=== PATIENT | male | born 1980 | race Caucasian/White ===

== ENCOUNTER 2017-02-22 15:31 | Emergency (ER) | payer OTHER ==
[~2017-02-22] VITALS: Ht 188 cm; Wt 133.8 kg
[~2017-02-22 15:31] MED LIST: DULO30CA2 PO; LEVO750T31 PO; LISI1TAB7 PO; RITU10VI IV
[2017-02-22] MEDS ORDERED: NAPROXEN 500 MG TABLET PO STA (15:46)
[2017-02-22 15:55] VITALS: BP 167/98
[2017-02-22] MEDS ORDERED: CYCL10TA2 PO (15:56)
[2017-02-22] MEDS ORDERED: METH4TAB2 PO (15:56)
[2017-02-22] MEDS ORDERED: NAPR500T4 PO (15:56)
--- NOTE | 2017-02-22 15:57 | PHYS DOC ---
Past Medical History Past Medical History: No Pertinent History Past Surgical History: No Surgical History Alcohol Use: Heavy Drug Use: Marijuana Adult General Chief Complaint Chief Complaint: LOWER BACK PAIN OR INJURY HPI HPI Patient is a 37 year old male who presents today complaining over 10 out of 10 left low back pain right in to the left lower extremity that began today after he pulled a pallet at work. Patient denies any loss of bowel bladder function. Denies any numbness or tingling to bilateral lower extremities. He states his previous history of sciatic nerve pain issues as well as low back pain. Review of Systems Review of Systems Constitutional: Denies fever or chills [] GI: Denies abdominal pain, nausea, vomiting, bloody stools or diarrhea [] : Denies dysuria or hematuria [] Musculoskeletal: Left low back pain radiating into the left lower extremity Integument: Denies rash or skin lesions [] Neurologic: Denies headache, focal weakness or sensory changes [] All other systems were reviewed and found to be within normal limits, except as documented in this note. Allergies Allergies Allergies Coded Allergies Type Severity Reaction Last Updated Verified No Known Drug Allergies 05/25/13 No Physical Exam Physical Exam Constitutional: Well developed, well nourished, no acute distress, non-toxic appearance. [] Abdomen: Bowel sounds normal, soft, no tenderness, no masses, no pulsatile masses. [] Skin: Warm, dry, no erythema, no rash. [] Back: Diffuse paraspinal muscle tenderness to the left lumbar spine was on the left SI joint, no midline lumbar spine tenderness, no CVA tenderness. Positive left leg straight raises. Extremities: No tenderness, no cyanosis, no clubbing, ROM intact, no edema. [] Neurologic: Alert and oriented X 3, normal motor function, normal sensory function, no focal deficits noted. [] Psychologic: Affect normal, judgement normal, mood normal. [] EKG EKG [] Radiology/Procedures Radiology/Procedures [] Course & Med Decision Making Course & Med Decision Making Pertinent Labs and Imaging studies reviewed. (See chart for details) Patient is in the ED with pain consistent of sciatic nerve pain, from lifting/ pulling a pallet at work. There is no cauda equina syndrome symptoms. He was asking for strong pain medicine, informed we do not give any narcotics our ED for back pain or sciatica or lumbar strain because this conditions can be managed with other non narcotics medicines. He'll be discharged with naproxen, Flexeril and Medrol Dosepak. He states he has a PCP Dr. Pruitt. Instructed to follow-up in the next 1 week. Dragon Disclaimer Dragon Disclaimer This electronic medical record was generated, in whole or in part, using a voice recognition dictation system. Departure Departure Impression: Primary Impression: Lumbosacral strain Additional Impressions: Low back pain Left sciatic nerve pain Disposition: HOME, SELF-CARE Condition: STABLE Referrals: NO PCP (PCP) TREE LAIRD MD follow up in one week MICH PRUITT MD follow up in one week Patient Instructions: Back Pain, Adult, Lumbosacral Strain, Sciatica with Rehab -SportsMed Additional Instructions: You were seen with lumbar strain, sciatic nerve pain. Follow-up with Dr. Pruitt in the next 1 week or the pain clinic doctor provided. Take the prescribed medicines as ordered. Scripts Cyclobenzaprine Hcl (CYCLOBENZAPRINE HCL) 10 Mg Tablet 1 TAB PO TID, #30 TAB Prov: CHAPARRO MAI APRN 02/22/17 Naproxen (NAPROXEN) 500 Mg Tablet 1 TAB PO BID, #30 TAB 0 Refills Prov: CHAPARRO MAI APRN 02/22/17 Methylprednisolone (MEDROL) 4 Mg Tab.ds.pk 1 PKG PO UD, #1 PKG Prov: CHAPARRO MAI APRN 02/22/17 Problem Qualifiers Primary Impression: Lumbosacral strain Encounter type: initial encounter Qualified Codes: S39.012A - Strain of muscle, fascia and tendon of lower back, initial encounter Additional Impressions: Low back pain Chronicity: acute Back pain laterality: left Sciatica presence: with sciatica Sciatica laterality: sciatica of left side Qualified Codes: M54.42 - Lumbago with sciatica, left side KYLEMARÍACHAPARRO Rene APRN Feb 22, 2017 15:57
[2017-02-22] MEDS ORDERED: CYCLOBENZAPRINE 10 MG TABLET. PO ONE (16:00)
[2017-02-22] MEDS ORDERED: predniSONE 10 MG TABLET PO ONE (16:00)
== END 2017-02-22 16:11 | disposition home or self-care (01) ==
LOC: ER 15:31
DX: S39.012A Strain of muscle, fascia and tendon of lower back, initial encounter (principal); M54.42 Lumbago with sciatica, left side; F12.10 Cannabis abuse, uncomplicated; F10.10 Alcohol abuse, uncomplicated; X50.9XXA Other and unspecified overexertion or strenuous movements or postures, initial encounter; Y93.89 Activity, other specified; Y99.0 Civilian activity done for income or pay; Y92.69 Other specified industrial and construction area as the place of occurrence of the external cause
CPT/HCPCS: 99284; J7512

== ENCOUNTER 2017-04-10 21:16 | Emergency (ER) | payer SELFPAY, OTHER ==
[2017-04-10 22:10] LABS: ADD MAN DIFF? NO
[2017-04-10 22:13] LABS: BASO # 0.1 x10^3/uL (0.0-0.2); BASO % 1 % (0-3); EOS # 0.5 x10^3/uL (0.0-0.7); EOS % 6 % (0-3); HEMATOCRIT 45.7 % (39.0-53.0); HEMOGLOBIN 15.4 g/dL (13.0-17.5); LYMPH # 1.2 x10^3/uL (1.0-4.8); LYMPH % 15 % (24-48); MEAN CORPUSCULAR HEMOGLOBIN 31 pg (25-35); MEAN CORPUSCULAR HGB CONC 34 g/dL (31-37); MEAN CORPUSCULAR VOLUME 92 fL (79-100); MONO # 0.8 x10^3/uL (0.0-1.1); MONO % 10 % (0-9); NEUT # 5.7 x10^3uL (1.8-7.7); NEUT % 69 % (31-73); PLATELET COUNT 146 x10^3/uL (140-400); RED BLOOD COUNT 4.95 x10^6/uL (4.30-5.70); RED CELL DISTRIBUTION WIDTH 15.2 % (11.5-14.5); WHITE BLOOD COUNT 8.2 x10^3/uL (4.0-11.0)
[2017-04-10] MEDS: IV NORMAL SALINE 500ML BAG 500 ML IV (22:22)
[2017-04-10 22:23] LABS: ANION GAP 12 (6-14); BLOOD UREA NITROGEN 15 mg/dL (8-26); CALCIUM 8.2 mg/dL (8.5-10.1); CARBON DIOXIDE 23 mmol/L (21-32); CHLORIDE 104 mmol/L (98-107); CREATININE 0.9 mg/dL (0.7-1.3); GFR 93.9; GLUCOSE 91 mg/dL (70-99); POTASSIUM 4.2 mmol/L (3.5-5.1); SODIUM 139 mmol/L (136-145)
[2017-04-10] MEDS: fentaNYL PF VIAL 100 MCG/2 ML VIAL IV (22:23)
[2017-04-10 22:57] LABS: BILIRUBIN,URINE NEGATIVE (NEG); CLARITY,URINE CLEAR; COLOR,URINE YELLOW; GLUCOSE,URINE NEGATIVE (NEG); NITRITE,URINE NEGATIVE (NEG); PROTEIN,URINE NEGATIVE (NEG-TRACE)
[2017-04-10 23:08] LABS: BACTERIA,URINE 0 /HPF (0-FEW); RBC,URINE 0 /HPF (0-2); SQUAMOUS EPITHELIAL CELL,UR FEW /LPF; WBC,URINE 0 /HPF (0-4)
== END 2017-04-11 01:28 | disposition home or self-care (01) ==
LOC: ER 04-11 01:28
DX: S02.2XXA Fracture of nasal bones, initial encounter for closed fracture (principal); S06.0X1A Concussion with loss of consciousness of 30 minutes or less, initial encounter; S00.12XA Contusion of left eyelid and periocular area, initial encounter; M54.89 Other dorsalgia; M54.2 Cervicalgia; F10.20 Alcohol dependence, uncomplicated; W00.0XXA Fall on same level due to ice and snow, initial encounter; Y93.89 Activity, other specified; Y92.89 Other specified places as the place of occurrence of the external cause; Y99.8 Other external cause status
CPT/HCPCS: 36415; 70450; 70486; 72125; 80048; 81001; 85025; 96361; 96374; 99285-25; J3010; J7040

== ENCOUNTER 2019-08-21 18:17 | Emergency (ER) | payer OTHER ==
[~2019-08-21] VITALS: Ht 175.3 cm; Wt 100.0 kg
[~2019-08-21 18:17] MED LIST changes: +CYCL10TA2 PO; +HYDR-2761 PO; +LISI1TAB20 PO; -LISI1TAB7 PO; +METH4TAB2 PO; +NAPR-514 PO
[2019-08-21] MEDS ORDERED: IV NORMAL SALINE 1000ML BAG 1,000 ML IV SCH (18:23)
--- NOTE | 2019-08-21 18:39 | PHYS DOC ---
Past Medical History Past Medical History: Other Additional Past Medical Histor: Back injury (weight lifting) 1996 Past Surgical History: No Surgical History Smoking Status: Current Every Day Smoker Alcohol Use: Heavy Drug Use: Marijuana General Adult EDM: Chief Complaint: HEAT EXPOSURE HPI: HPI: Patient is a 39 year old male who presents via EMS with report that he was out walking in the heat and had given plasma earlier in the day and just had not replenished his fluids. Patient complains of pain all over that he rates at a 9 out of 10. He states that he feels nauseated but has not vomited. He denies any diarrhea. Patient is homeless [] Review of Systems: Review of Systems: Constitutional: Denies fever or chills. [] Respiratory: Denies cough or shortness of breath. [] Cardiovascular: Denies chest pain or edema. [] GI: Complains of nausea without vomiting. [] Musculoskeletal: Complains of diffuse body pain. [] Integument: Denies rash. [] Neurologic: Denies headache, focal weakness or sensory changes. [] A full 10 point review of systems has been reviewed and is otherwise negative. Heart Score: Risk Factors: Risk Factors: DM, Current or recent (<one month) smoker, HTN, HLP, family history of CAD, obesity. Risk Scores: Score 0 - 3: 2.5% MACE over next 6 weeks - Discharge Home Score 4 - 6: 20.3% MACE over next 6 weeks - Admit for Clinical Observation Score 7 - 10: 72.7% MACE over next 6 weeks - Early Invasive Strategies Current Medications: Current Medications Medications (Trade) Dose Ordered Sig/[facility] Start Time Stop Time Status Last Admin Dose Admin Sodium Chloride 1,000 ml @ 1,000 mls/hr Q1H 08/21/19 18:23 08/21/19 19:22 Allergies: Allergies: Allergies Coded Allergies Type Severity Reaction Last Updated Verified No Known Drug Allergies 05/25/13 No Physical Exam: PE: Constitutional: Well developed, well nourished, no acute distress, non-toxic appearance. [] HENT: Normocephalic, atraumatic, bilateral external ears normal, oropharynx moist, no oral exudates, nose normal. [] Eyes: PERRLA, EOMI, conjunctiva normal, no discharge. [] Neck: Normal range of motion, no tenderness, supple. [] Cardiovascular: Regular rate and rhythm [] Lungs & Thorax: Bilateral breath sounds clear to auscultation [] Abdomen: Bowel sounds normal, soft, no tenderness. [] Skin: Warm, dry, no erythema, no rash. [] Extremities: There is diffuse tenderness, no cyanosis, no clubbing, ROM intact. [] Neurologic: Alert and oriented X 3, no focal deficits noted. [] EKG: EKG: [] Radiology/Procedures: Radiology/Procedures: [] Course & Med Decision Making: Course & Med Decision Making Pertinent Labs and Imaging studies reviewed. (See chart for details) [] Dragon Disclaimer: Dragon Disclaimer: This electronic medical record was generated, in whole or in part, using a voice recognition dictation system. Departure Departure Impression: Primary Impression: Dehydration Additional Impression: Methamphetamine abuse Disposition: 01 HOME, SELF-CARE Condition: STABLE Referrals: ESTEBAN COLE MD (PCP) Patient Instructions: Dehydration, Adult, Methamphetamine Abuse, Complications TYRESE RITTER Jr. DO Aug 21, 2019 18:39
[2019-08-21 18:44] LABS: BASO % 1 % (0-3); EOS # 0.2 x10^3/uL (0.0-0.7); EOS % 4 % (0-3); HEMATOCRIT 39.7 % (39.0-53.0); HEMOGLOBIN 13.7 g/dL (13.0-17.5); LYMPH % 23 % (24-48); MEAN CORPUSCULAR HEMOGLOBIN 30 pg (25-35); MEAN CORPUSCULAR HGB CONC 35 g/dL (31-37); MEAN CORPUSCULAR VOLUME 87 fL (79-100); MONO # 0.4 x10^3/uL (0.0-1.1); MONO % 10 % (0-9); NEUT # 2.8 x10^3/uL (1.8-7.7); NEUT % 63 % (31-73); PLATELET COUNT 167 x10^3/uL (140-400); RED BLOOD COUNT 4.58 x10^6/uL (4.30-5.70); RED CELL DISTRIBUTION WIDTH 15.3 % (11.5-14.5); WHITE BLOOD COUNT 4.5 x10^3/uL (4.0-11.0)
[2019-08-21 18:51] LABS: CALCIUM 7.9 mg/dL (8.5-10.1); CREATININE 1.1 mg/dL (0.7-1.3); GFR 73.8; POTASSIUM 3.6 mmol/L (3.5-5.1)
[2019-08-21 18:58] LABS: ALBUMIN 3.4 g/dL (3.4-5.0); DIRECT BILIRUBIN 0.2 mg/dL (0.0-0.2); MAGNESIUM 1.8 mg/dL (1.8-2.4); TOTAL BILIRUBIN 0.5 mg/dL (0.2-1.0); TOTAL PROTEIN 6.3 g/dL (6.4-8.2)
[2019-08-21] MEDS ORDERED: IV NORMAL SALINE 1000ML BAG 1,000 ML IV ONE (20:30)
[2019-08-21 21:32] LABS: BILIRUBIN,URINE NEGATIVE (NEG); CLARITY,URINE CLEAR; COLOR,URINE YELLOW; NITRITE,URINE NEGATIVE (NEG); PH,URINE 5.5 (<5.0-8.0); PROTEIN,URINE NEGATIVE (NEG-TRACE)
[2019-08-21 21:39] LABS: AMPHETAMINE/METHAMPHETAMINE POS (NEG); BACTERIA,URINE 0 /HPF (0-FEW); BARBITURATES NEG (NEG); BENZODIAZEPINES NEG (NEG); CANNABINOIDS NEG (NEG); COCAINE NEG (NEG); METHADONE NEG (NEG); OPIATES NEG (NEG); PHENCYCLIDINE NEG (NEG); RBC,URINE OCC /HPF (0-2)
[2019-08-21 22:45] VITALS: BP 134/72
--- NOTE | 2019-08-22 06:08 | EKG ---
[facility] [address] [place] [address] Test Date: 2019-08-21 Test Time: 18:33:11 Pat Name: JASSI CASSIDY Department: Room: Gender: M Community Education Coordinator: [place] : 1980 Requested By: TYRESE RITTER Order Number: [id number] Reading MD: Measurements Intervals [place] Rate: 94 P: 48 CT: 144 QRS: 33 QRSD: 94 T: 24 QT: 362 QTc: 453 Interpretive Statements SINUS RHYTHM QRS(T) CONTOUR ABNORMALITY CONSIDER ANTEROSEPTAL MYOCARDIAL DAMAGE POSSIBLY ABNORMAL ECG RI6.01 No previous ECG available for comparison
== END 2019-08-21 22:45 | disposition home or self-care (01) ==
LOC: ER 18:17
DX: E86.0 Dehydration (principal); F15.10 Other stimulant abuse, uncomplicated; F10.20 Alcohol dependence, uncomplicated; Y90.0 Blood alcohol level of less than 20 mg/100 ml; F17.200 Nicotine dependence, unspecified, uncomplicated
CPT/HCPCS: 36415; 80048; 80076; 80307; 81001; 82550; 83735; 85025; 93005; 96360; 96361; 99285; G0480; J7030